=== PATIENT | male | born 1935 | race Caucasian/White ===

== ENCOUNTER 2020-05-28 18:50 | Emergency (ER) | payer MEDICARE, BC ==
[~2020-05-28] VITALS: Ht 177.8 cm; Wt 104.5 kg
--- NOTE | 2020-05-28 19:10 | NUR ---
Sunita is waiting in car [phone] please call with questions or when we have reached a decision of whether to discharge or admit. They live in [place] so she doesn't want to head home and then have to turn around and come back. She has a binder with all necessary medical records.
[2020-05-28 19:36] LABS: BASOPHILS % (AUTO) 0.3 % (0-1); EOSINOPHILS % (AUTO) 0 % (0-6); HEMATOCRIT 47.5 % (42.0-52.0); LYMPHOCYTES # (AUTO) 1.5 X10'3 (1.1-4.8); LYMPHOCYTES % (AUTO) 9.1 % (21-51); MEAN CORPUSCULAR HEMOGLOBIN 30.9 PG (27.0-31.0); MEAN CORPUSCULAR HGB CONC 33.7 g/dL (33.0-36.5); MEAN CORPUSCULAR VOLUME 91.8 FL (78-98); MONOCYTES # (AUTO) 1.4 X10'3 (0-0.9); NEUTROPHILS % (AUTO) 81.6 % (42-75); PLATELET COUNT 232 X10'3 (140-440); RED BLOOD COUNT 5.17 X10'6 (4.70-6.10); RED CELL DISTRIBUTION WIDTH 15.1 % (11.5-14.5); WHITE BLOOD COUNT 15.9 X10'3 (4.5-11.0)
[2020-05-28 19:47] LABS: ALANINE AMINOTRANSFERASE 26 U/L (12-78); ALBUMIN/GLOBULIN RATIO 1.1 (1.1-1.5); ALKALINE PHOSPHATASE 55 IU/L (46-116); ANION GAP 9 (8-16); ASPARTATE AMINO TRANSFERASE 30 U/L (10-37); BILIRUBIN,TOTAL 0.8 MG/DL (0.1-1.0); BLOOD UREA NITROGEN 13 MG/DL (7-18); BUN/CREATININE RATIO 12.3 (5.4-32.0); CHLORIDE 104 MMOL/L (99-107); CREATININE 1.06 MG/DL (0.60-1.10); GLUCOSE 135 MG/DL (70-104); LIPASE 65 U/L (73-393); POTASSIUM 3.8 MMOL/L (3.5-5.1); SODIUM 144 MMOL/L (135-145); TOTAL CARBON DIOXIDE 30.6 MMOL/L (24-32); TOTAL PROTEIN 7.7 G/DL (6.4-8.2); eGFR 67 ML/MIN
--- NOTE | 2020-05-28 19:57 | NUR ---
attempted to call to provide an update - voicemail stated that the mailbox had not been set up. will try again later.
[2020-05-28 20:06] LABS: CLARITY,URINE CLEAR (Clear); COLOR,URINE YELLOW (Yellow); GLUCOSE, URINE NEGATIVE (Neg); KETONES,URINE TRACE mg/dl (Neg); LEUKOCYTE ESTERASE ,URINE NEGATIVE (Neg); NITRITES, URINE NEGATIVE (Neg); OCCULT BLOOD,URINE NEGATIVE (Neg); PH,URINE 6.5 (4.8-8.0); PROTEIN,URINE TRACE mg/dl (Neg); UROBILINOGEN,URINE 0.2 E.U/dL (0.2-1.0)
[2020-05-28 20:12] LABS: UA COLLECTION TYPE URINAL
[2020-05-28 20:13] LABS: BACTERIA,URINE NONE SEEN /HPF (Neg); RBC,URINE NONE SEEN /HPF (0-2); SQUAMOUS EPITHELIAL CELL,UR FEW /LPF (FEW); WBC,URINE NONE SEEN /HPF (0-4)
--- NOTE | 2020-05-28 20:45 | NUR ---
has been contacted and provided with an update and she is headed home for the night.
[2020-05-28] MEDS ORDERED: azithromycin/NS 500mg/250ml 250 ML IV ONE (21:20)
[2020-05-28] MEDS ORDERED: normal saline 1000ML IV soln IVB ONE (21:20)
[2020-05-28] MEDS ORDERED: acetaminophen 325mg tablet PO ONE (21:20)
[2020-05-28] MEDS ORDERED: CefTRIAXone/D5W-Rocephin 1gm 50 ML IV ONE (21:20)
--- NOTE | 2020-05-28 22:01 | NUR ---
updated with CT results and is aware that we will be transferring pt. At this time we are unsure what the accepting facility will be but I told her we would recontact her when we had this information.
[2020-05-28 22:16] LABS: PARTIAL THROMBOPLASTIN TIME 26 SECONDS (22-32)
--- NOTE | 2020-05-28 22:54 | NUR ---
Let know that patient is planning to tx to [facility]. I will call her sergio if that changes.
--- NOTE | 2020-05-29 00:21 | NUR ---
report number [id number]
--- NOTE | 2020-05-29 00:51 | NUR ---
verified in the room with MARGARITA Steward: patient was asked if he wanted any life support if his heart were to stop, he said no. He doesn't want any life saving medications. He doesn't want to be intubated. He said to just let him go. Pt totally understands what he is saying. His request is DNR/DNI.
--- NOTE | 2020-05-29 00:51 | NUR ---
ASKED PT ABOUT CODE STATUS, PT STATES HE WANTS TO BE DNR WITH NO MEDICATIONS, CPR, OR ANY PROLONGING LIFE CARE. VERIFIED THIS INFORMATION WITH SABINE AVILA IN ROOM. ASKED IF HE WOULD WANT ANY MEDICATIONS IF HIS HEART WERE TO STOP, TO WHICH PT REPLIED "NO." ASKED PT IF HE WOULD WANT TO BE INTUBATED OR HAVE CPR PERFORMED, PT RESPONDED "NO."
--- NOTE | 2020-05-29 01:11 | NUR ---
CALLED REPORT TO [facility] ICU AND SPOKE WITH MARGARITA ROSADO.
[2020-05-29 02:02] VITALS: BP 149/80
== END 2020-05-29 01:50 | disposition short-term general hospital (02) ==
LOC: ER 18:51
DX: I60.8 Other nontraumatic subarachnoid hemorrhage (principal)
CPT/HCPCS: 36415; 70450; 71045; 71250; 80053; 81001; 83605; 83690; 84145; 84484; 85025; 85610; 85730; 87040; 87635; 93005; 96365; 96368; 99291; 99292; C9803; J0456; J0696; J7030; 99285